=== PATIENT | male | born 1970 | race African-American/Black ===

== ENCOUNTER 2017-07-07 09:13 | Inpatient (IN) | payer BC ==
[~2017-07-07] VITALS: Ht 180.3 cm; Wt 99.8 kg
[2017-07-07] MEDS ORDERED: LISI-186 PO (09:32)
[2017-07-07] MEDS ORDERED: ASPIRIN 81MG TABLET PO STA (10:40)
[2017-07-07] MEDS ORDERED: CLONIDINE 0.1MG TABLET PO ONE (10:45)
[2017-07-07 11:12] LABS: BASOPHILS % 0.8 % (0.0-2.0); EOSINOPHILS % 0.1 % (0.0-5.0); HEMATOCRIT. 42.5 % (42.0-52.0); HEMOGLOBIN. 14.7 g/dL (14.0-18.0); LYMPHOCYTES % 29.4 % (20.0-50.0); MEAN CORPUSCULAR HEMOGLOBIN 30.4 pg (28.0-32.0); MEAN CORPUSCULAR VOLUME 87.9 fL (80.0-94.0); MEAN PLATELET VOLUME 9.3 fl (7.4-10.4); MONOCYTES % 5.7 % (2.0-8.0); PLATELET 242 x1000/uL (130-400); RED BLOOD CELL COUNT 4.84 mill/uL (4.7-6.1); RED CELL DISTRIBUTION WIDTH 13.1 % (11.6-14.6)
[2017-07-07 11:25] LABS: CARBON DIOXIDE 27 mEq/L (21-32); CHLORIDE 104 mEq/L (98-107)
[2017-07-07] MEDS: NITROGLYCERIN 0.4MG TABLET SL SL PRN ×2 (11:25→11:30)
[2017-07-07 11:31] LABS: TROPONIN I 0.07 ng/mL (0.00-0.04)
[2017-07-07 11:48] LABS: PARTIAL THROMBOPLASTIN TIME 22.8 sec (23.4-31.0); PROTHROMBIN TIME 10.6 sec (9.4-11.6)
[2017-07-07] MEDS ORDERED: CLONIDINE 0.1MG TABLET PO PRN (16:45)
[2017-07-07] MEDS ORDERED: LISINOPRIL 2.5MG TABLET PO SCH (17:30)
[2017-07-07] MEDS ORDERED: ONDANSETRON HCL 4MG/2ML VIAL IV PRN (21:30)
[2017-07-07] MEDS ORDERED: DIPHENHYDRAMINE 50MG/ML VIAL IV PRN (21:30)
[2017-07-07] MEDS ORDERED: ACETAMINOPHEN 325MG TABLET PO PRN (21:30)
[2017-07-07] MEDS ORDERED: MAGNESIUM/ALUMINUM HYDROXIDE/SIMETHICONE 30ML UDC PO PRN (21:30)
[2017-07-07] MEDS ORDERED: MAGNESIUM HYDROXIDE 400MG/5ML 30ML UDC PO PRN (21:30)
[2017-07-07] MEDS ORDERED: IPRATROPIUM/ALBUTEROL 0.5-3(2.5)MG/3ML NEB INH PRN (21:30)
[2017-07-07 22:00] VITALS: BP 138/86
[2017-07-07] MEDS ORDERED: REGADENOSON 0.4 MG/5 ML IV NR (22:00)
[2017-07-07] MEDS ORDERED: SODIUM CHLORIDE 0.9% INJ 3ML FLUSH IVF SCH (22:00)
[2017-07-07] MEDS ORDERED: DEXTROSE 50% WATER 50ML SYRINGE IV PRN (22:00)
[2017-07-07] MEDS ORDERED: ZOLPIDEM TARTRATE 5MG TABLET PO PRN (23:00)
[2017-07-07] MEDS ORDERED: METF500T4 PO (23:18)
[2017-07-08 04:00] VITALS: BP 148/90
[2017-07-08] MEDS: BLOOD SUGAR DIAGNOSTIC STRIP TEST SCH ×2 (07:08→13:06)
[2017-07-08 07:17] LABS: *AMPHETAMINES SCREEN URINE NEGATIVE (NEGATIVE); *BARBITURATES SCREEN URINE NEGATIVE (NEGATIVE); *BENZODIAZEPINES SCREEN URINE NEGATIVE (NEGATIVE); *COCAINE SCREEN URINE PRESUMTIVE POSITIVE (NEGATIVE); CANNABINOID URINE SCREEN NEGATIVE (NEGATIVE); METHADONE URINE SCREEN NEGATIVE (NEGATIVE); OPIATES URINE SCREEN NEGATIVE (NEGATIVE); PHENCYCLIDINE URINE SCREEN NEGATIVE (NEGATIVE)
[2017-07-08 07:31] LABS: CHLORIDE 103 mEq/L (98-107)
[2017-07-08] MEDS: INSULIN LISPRO 100 UNITS/ML SUBCUT SCH ×2 (07:44→12:50)
[2017-07-08 07:47] LABS: BASOPHILS % 0.8 % (0.0-2.0); EOSINOPHILS % 3.3 % (0.0-5.0); HEMATOCRIT. 38.4 % (42.0-52.0); HEMOGLOBIN. 13.3 g/dL (14.0-18.0); MEAN CORPUSCULAR HEMOGLOBIN 30.9 pg (28.0-32.0); MEAN CORPUSCULAR VOLUME 89.2 fL (80.0-94.0); MEAN PLATELET VOLUME 9.3 fl (7.4-10.4); MONOCYTES % 8.4 % (2.0-8.0); NEUTROPHILS % 19.5 % (40.0-76.0); PLATELET 207 x1000/uL (130-400); RED CELL DISTRIBUTION WIDTH 12.8 % (11.6-14.6)
[2017-07-08 08:00] VITALS: BP 158/100
[2017-07-08 08:05] LABS: CARBON DIOXIDE 25 mEq/L (21-32); HDL CHOLESTEROL 66 mg/dL (40-59); LDL CHOLESTEROL 76 mg/dL (5-100); TROPONIN I 0.03 ng/mL (0.00-0.04)
[2017-07-08] MEDS ORDERED: AMLODIPINE 2.5MG TABLET PO SCH (10:15)
[2017-07-08] MEDS ORDERED: ASPIRIN 81MG EC TABLET PO SCH (10:30)
[2017-07-08 12:00] VITALS: BP 128/84
[2017-07-08 16:11] VITALS: BP 128/84
[2017-07-08] MEDS ORDERED: LISINOPRIL 5MG TABLET PO SCH (17:00)
== END 2017-07-08 16:40 | disposition home or self-care (01) | DRG 918 ==
LOC: EDBEDREQ 12:37 → ER 12:52 → 6WST 13:35 → ENRESERV 20:53
PROVIDERS: ADMIT Internal Medicine; ATTEND Internal Medicine
DX: T40.5X1A Poisoning by cocaine, accidental (unintentional), initial encounter (principal); E46 Unspecified protein-calorie malnutrition; I11.9 Hypertensive heart disease without heart failure; R07.89 Other chest pain; F19.10 Other psychoactive substance abuse, uncomplicated; E78.00 Pure hypercholesterolemia, unspecified; F14.10 Cocaine abuse, uncomplicated; Y90.9 Presence of alcohol in blood, level not specified; E11.9 Type 2 diabetes mellitus without complications; F10.10 Alcohol abuse, uncomplicated; F17.210 Nicotine dependence, cigarettes, uncomplicated; Z79.899 Other long term (current) drug therapy; Z82.49 Family history of ischemic heart disease and other diseases of the circulatory system; Z83.3 Family history of diabetes mellitus; Z71.6 Tobacco abuse counseling; Z71.51 Drug abuse counseling and surveillance of drug abuser; Z71.41 Alcohol abuse counseling and surveillance of alcoholic; Z79.84 Long term (current) use of oral hypoglycemic drugs; Z68.30 Body mass index [BMI] 30.0-30.9, adult
CPT/HCPCS: 36415; 71010; 80048; 80053; 80061; 80305; 82962; 83036; 83735; 83880; 84484; 85025; 85610; 85730; 93005; 99285; J1815

== ENCOUNTER 2017-09-14 21:11 | Emergency (ER) | payer BC ==
[~2017-09-14] VITALS: Ht 172.7 cm; Wt 72.0 kg
[~2017-09-14 21:11] MED LIST: LISI-186 PO; METF500T4 PO
[2017-09-14] MEDS: NITROGLYCERIN 0.4MG TABLET SL SL PRN (22:36)
[2017-09-14] MEDS: ASPIRIN 81MG TABLET PO ONE (22:36)
[2017-09-14 22:49] LABS: BASOPHILS % 1.2 % (0.0-2.0); EOSINOPHILS % 3.6 % (0.0-5.0); HEMATOCRIT. 38.7 % (42.0-52.0); HEMOGLOBIN. 13.7 g/dL (14.0-18.0); LYMPHOCYTES % 57.5 % (20.0-50.0); MEAN CORPUSCULAR HEMOGLOBIN 31.8 pg (28.0-32.0); MEAN PLATELET VOLUME 8.8 fl (7.4-10.4); MONOCYTES % 8.1 % (2.0-8.0); NEUTROPHILS % 29.6 % (40.0-76.0); PLATELET 224 x1000/uL (130-400); RED CELL DISTRIBUTION WIDTH 13.3 % (11.6-14.6)
[2017-09-14 22:54] LABS: CHLORIDE 106 mEq/L (98-107)
[2017-09-14 22:59] LABS: PARTIAL THROMBOPLASTIN TIME 24.7 sec (23.4-31.0); PROTHROMBIN TIME 10.1 sec (9.4-11.6)
[2017-09-14 23:00] LABS: CARBON DIOXIDE 25 mEq/L (21-32)
[2017-09-14 23:05] LABS: TROPONIN I 0.03 ng/mL (0.00-0.04)
[2017-09-14 23:32] LABS: *AMPHETAMINES SCREEN URINE NEGATIVE (NEGATIVE); *BARBITURATES SCREEN URINE NEGATIVE (NEGATIVE); *BENZODIAZEPINES SCREEN URINE NEGATIVE (NEGATIVE); *COCAINE SCREEN URINE PRESUMTIVE POSITIVE (NEGATIVE); CANNABINOID URINE SCREEN NEGATIVE (NEGATIVE); METHADONE URINE SCREEN NEGATIVE (NEGATIVE); OPIATES URINE SCREEN NEGATIVE (NEGATIVE); PHENCYCLIDINE URINE SCREEN NEGATIVE (NEGATIVE)
[2017-09-14] MEDS: HYDRALAZINE 20MG/ML VIAL IV ONE (23:51)
[2017-09-15 01:10] VITALS: BP 181/107
== END 2017-09-15 01:15 | disposition home or self-care (01) ==
LOC: ER 21:11
DX: I16.0 Hypertensive urgency (principal); I10 Essential (primary) hypertension; E11.65 Type 2 diabetes mellitus with hyperglycemia; F12.10 Cannabis abuse, uncomplicated; F14.10 Cocaine abuse, uncomplicated
CPT/HCPCS: 36415; 71010; 80053; 80305; 83880; 84484; 85025; 85610; 85730; 93005; 96374; 99285; J0360; Z7610

== ENCOUNTER 2020-08-11 11:24 | Emergency (ER) | payer BC, OTHER ==
[~2020-08-11] VITALS: Ht 188 cm; Wt 82.0 kg
[~2020-08-11 11:24] MED LIST changes: +METF-414 PO; -METF500T4 PO
[2020-08-11] MEDS ORDERED: SODIUM CHLORIDE 0.9% 1,000 ML IV ONE ×2 (11:45→14:30)
[2020-08-11 12:29] LABS: BASOPHILS % 0.7 % (0.0-2.0); EOSINOPHILS % 1.1 % (0.0-5.0); HEMATOCRIT. 39.8 % (42.0-52.0); HEMOGLOBIN. 13.7 g/dL (14.0-18.0); LYMPHOCYTES % 43.2 % (20.0-50.0); MEAN CORPUSCULAR HEMOGLOBIN 30.6 pg (28.0-32.0); MEAN CORPUSCULAR VOLUME 88.8 fL (80.0-94.0); MEAN PLATELET VOLUME 9.5 fl (7.4-10.4); MONOCYTES % 8.7 % (2.0-8.0); NEUTROPHILS % 46.3 % (40.0-76.0); PLATELET 231 x1000/uL (130-400); RED BLOOD CELL COUNT 4.48 mill/uL (4.7-6.1); RED CELL DISTRIBUTION WIDTH 13.3 % (11.6-14.6)
[2020-08-11 12:34] LABS: CHLORIDE 102 mEq/L (98-107)
[2020-08-11 12:43] LABS: ETHANOL BLOOD < 10 mg/dL
[2020-08-11 12:47] LABS: D-DIMER 0.57 mg/L FEU (<0.50); PROTHROMBIN TIME 10.9 sec (9.6-11.0)
[2020-08-11] MEDS ORDERED: ASPIRIN 325MG EC TABLET PO NR (15:00)
[2020-08-11] MEDS ORDERED: LORAZEPAM 1MG TABLET PO ONE (15:15)
[2020-08-11 16:53] VITALS: BP 154/95
== END 2020-08-11 17:01 | disposition short-term general hospital (02) ==
LOC: ER 11:35 → CANBEDREQ 18:34
DX: R41.82 Altered mental status, unspecified (principal); F14.10 Cocaine abuse, uncomplicated; F12.10 Cannabis abuse, uncomplicated
CPT/HCPCS: 36415; 70450; 71045; 73030; 80053; 80307; 80320; 80329; 82140; 82962; 83690; 83880; 84443; 84484; 85025; 85379; 85610; 93005; 96360; 96361; 99285; J7030; G0480

== ENCOUNTER 2023-12-11 15:56 | Emergency (ER) | payer OTHER ==
[~2023-12-11] VITALS: Ht 177.8 cm; Wt 65.0 kg
[2023-12-11 16:06] VITALS: O2SAT 98
[2023-12-11] MEDS: SODIUM CHLORIDE 0.9% 1,000 ML IV ONE (16:30)
[2023-12-11 17:12] VITALS: BP 130/68; PULSE 80; RESP 16; TEMP 98.5
== END 2023-12-11 17:14 ==
LOC: ER 15:56
DX: R68.89 Other general symptoms and signs (principal); E11.9 Type 2 diabetes mellitus without complications; I10 Essential (primary) hypertension; F14.10 Cocaine abuse, uncomplicated
CPT/HCPCS: 99283; J7030

== ENCOUNTER 2024-02-03 18:16 | Emergency (ER) | payer SELFPAY ==
[~2024-02-03] VITALS: Ht 182.9 cm; Wt 82.0 kg
[2024-02-03 18:29] VITALS: O2SAT 100
[2024-02-03 19:30] LABS: BASOPHILS % 0.8 % (0.0-2.0); EOSINOPHILS % 0.9 % (0.0-5.0); HEMATOCRIT. 41.2 % (42.0-52.0); LYMPHOCYTES % 32.7 % (20.0-50.0); MEAN CORPUSCULAR HEMOGLOBIN 30.6 pg (28.0-32.0); MEAN CORPUSCULAR HGB CONC 33.9 g/dL (31.0-37.0); MEAN CORPUSCULAR VOLUME 90.3 fL (80.0-94.0); MEAN PLATELET VOLUME 9.2 fl (7.4-10.4); MONOCYTES % 7.9 % (2.0-8.0); NEUTROPHILS % 57.7 % (40.0-76.0); PLATELET 223 x1000/uL (130-400); RED BLOOD CELL COUNT 4.57 mill/uL (4.7-6.1); RED CELL DISTRIBUTION WIDTH 13.4 % (11.6-14.6)
[2024-02-03 19:41] LABS: ALANINE AMINOTRANSFERASE 15 IU/L (10-49); ALBUMIN 4.5 g/dL (3.2-4.8); ASPARTATE AMINOTRANSFERASE 15 IU/L (<34); BILIRUBIN TOTAL 0.5 mg/dL (0.1-1.0); CALCIUM 9.1 mg/dL (8.7-10.4); CARBON DIOXIDE 26 mEq/L (21-32); CHLORIDE 105 mEq/L (98-107); CREATININE 1.4 mg/dL (0.6-1.3); GLUCOSE 233 mg/dL (70-105); PROTEIN TOTAL 7.6 g/dL (6.0-8.3); SODIUM 138 mEq/L (136-145); UREA NITROGEN BLOOD 18 mg/dL (9-23)
[2024-02-03 20:31] LABS: TROPONIN I HIGH SENSITIVITY 20 ng/L (3.0-53)
[2024-02-03 22:31] VITALS: BP 161/91; PULSE 74; RESP 18; TEMP 98
[2024-02-03] MEDS ORDERED: METF-414 MT (22:34)
[2024-02-03 22:49] LABS: CLARITY URINE CLEAR (CLEAR); COLOR URINE YELLOW (YELLOW); GLUCOSE URINE 3+ (NEGATIVE); KETONES URINE NEGATIVE (NEGATIVE); LEUKOCYTE ESTERASE URINE NEGATIVE (NEGATIVE); NITRITE URINE NEGATIVE (NEGATIVE); OCCULT BLOOD URINE NEGATIVE (NEGATIVE); PROTEIN URINE NEGATIVE (NEGATIVE); SPECIFIC GRAVITY URINE 1.034 (1.005-1.030)
[2024-02-03 23:10] LABS: BACTERIA URINE NONE SEEN; RBC URINE 0-2 /hpf (0-2); SQUAMOUS EPITHELIAL CELL URINE NONE SEEN /lpf (RARE/1+); WBC URINE 0-2 /hpf (0-2)
== END 2024-02-03 23:05 | disposition home or self-care (01) ==
LOC: ER 18:16
DX: I10 Essential (primary) hypertension (principal); E11.65 Type 2 diabetes mellitus with hyperglycemia
CPT/HCPCS: 36415; 80053; 81003; 82962; 83880; 84484; 85025; 93005; 99284